=== PATIENT | female | born 1985 | race Caucasian/White ===

== ENCOUNTER 2024-04-08 09:55 | Outpatient (CLI) | payer OTHER ==
--- NOTE | 2024-04-08 12:25 | XRAY Report ---
PROCEDURE: Chest 2V INDICATIONS: ACUTE COUGH TECHNIQUE: 2 views of the chest were acquired. COMPARISON: None. FINDINGS: Surgical changes and devices: None. Lungs and pleura: Hazy patchy alveolar opacity in the right middle lobe region.Bilateral infrahilar interstitial thickening and bronchial wall thickening, right much greater than left. No pleural effus ion or pneumothorax. Mediastinum: Mediastinal contours appear normal. Heart size is normal. Bones and chest wall: No suspicious bony lesions. Overlying soft tissues appear unremarkable. IMPRESSION: Mixed interstitial and alveolar opacities in the infrahilar region bilaterally, right middle and lowe r lobe worse than left. Findings suggest bronchitis with probably superimposed pneumonia. No pleural effusion. Reviewed by: Leona Hernadez MD on 04/08/2024 12:24 PM PDT Approved by: Leona Hernadez MD on 04/08/2024 12:24 PM PDT Station ID: [id number]
== END 2024-04-08 11:12 | disposition home or self-care (01) ==
LOC: DI.N 09:55
PROVIDERS: ATTEND Physician Assistant Medical
DX: R05.1 Acute cough (principal); R91.8 Other nonspecific abnormal finding of lung field

== ENCOUNTER 2024-04-16 12:15 | Outpatient (CLI) | payer OTHER ==
[2024-04-16 18:19] LABS: CALCIUM 9.5 mg/dL (8.5-10.3); CREATININE 0.6 mg/dL (0.6-1.3); POTASSIUM 4.1 mmol/L (3.5-4.5)
[2024-04-16 18:21] LABS: HCT - HEMATOCRIT 42.4 % (37.0-47.0); HGB - HEMOGLOBIN 13.6 g/dL (12.0-16.0); MEAN CORPUSCULAR HEMOGLOBIN 26.2 pg (27.0-31.0); MEAN CORPUSCULAR HGB CONC 32.1 g/dL (32.0-36.0); MEAN CORPUSCULAR VOLUME 81.5 fL (81.0-99.0); MEAN PLATELET VOLUME 10.7 fL (7.9-10.8); RED BLOOD COUNT 5.2 10^6/uL (4.20-5.40); RED CELL DISTRIBUTION WIDTH 15.4 % (12.0-15.0); WHITE BLOOD COUNT 13.3 x10^3/uL (4.8-10.8)
== END 2024-04-16 12:30 | disposition home or self-care (01) ==
LOC: LAB.N 12:15
PROVIDERS: ATTEND Nurse Practitioner
DX: J18.9 Pneumonia, unspecified organism (principal)
CPT/HCPCS: 36415; 80048; 85027

== ENCOUNTER 2024-04-16 12:30 | Outpatient (CLI) | payer OTHER ==
--- NOTE | 2024-04-16 17:02 | XRAY Report ---
PROCEDURE: Chest 2V INDICATIONS: PNEUMONIA TECHNIQUE: 2 views of the chest were acquired. COMPARISON: Chest x-ray, 04/08/2024. FINDINGS: Surgical changes and devices: None. Lungs and pleura: Right lower lobe infiltrate has decreased. Left perihilar infiltrates longer prese nt. No pleural effusions or pneumothorax. Mediastinum: Mediastinal contours appear normal. Heart size is normal. Bones and chest wall: No suspicious bony lesions. Overlying soft tissues appear unremarkable. IMPRESSION: Resolving pneumonia. Reviewed by: Rd Jones MD on 04/16/2024 4:01 PM TABITHA Approved by: Rd Jones MD on 04/16/2024 4:01 PM AKDT Station ID: [id number]
== END 2024-04-16 12:45 | disposition home or self-care (01) ==
LOC: DI.N 12:30
PROVIDERS: ATTEND Nurse Practitioner
DX: J18.9 Pneumonia, unspecified organism (principal)

== ENCOUNTER 2024-07-23 10:15 | Outpatient (CLI) | payer OTHER | END 2024-07-23 10:30 | disposition home or self-care (01) | LOC: LAB.N 10:15 | PROVIDERS: ATTEND Physician Assistant Medical | DX: R31.9 Hematuria, unspecified (principal); R10.9 Unspecified abdominal pain | CPT/HCPCS: 87086 ==

== ENCOUNTER 2024-07-24 10:59 | Outpatient (CLI) | payer OTHER ==
--- NOTE | 2024-07-24 22:58 | CT Report ---
PROCEDURE: Abdomen/Pelvis WO INDICATIONS: HEMATURIA TECHNIQUE: A CT scan of the abdomen and pelvis was performed without the use of intravenous contrast. Images we re recorded and evaluated at appropriate window settings. Reformats: coronal and sagittal. For radiat ion dose reduction, the following was used: automated exposure control, adjustment of mA and/or kV ac cording to patient size. COMPARISON: None. FINDINGS: Image quality: Diagnostic. Lower chest: Unremarkable. Liver: No contour-deforming mass. Gallbladder: No radiopaque stones or wall thickening. Biliary tree: No intrahepatic or extrahepatic dilation, accounting for age. Spleen: Mild splenomegaly measuring 13.3 cm in the AP dimension (2/33) Pancreas: No pancreatic ductal dilation. Adrenals: Mild thickening of the adrenal glands bilaterally without nodularity (greater on the left ( 2/42). Kidneys and ureters: No hydronephrosis. No contour-deforming mass. Stomach, bowel and peritoneum: No gastric or small bowel dilation. No abnormal wall thickening. No pa thologic free fluid. Scattered colonic diverticulosis. Normal appendix (4/81). Lymph nodes: While not enlarged by size criteria, there are numerous mesenteric, para-aortic, paracav al, and internal iliac nodes (4/72; 2/71; 2/65). Vessels: No infrarenal aortic aneurysm. Minimal atherosclerosis of the infrarenal abdominal aorta (2/ 77) Reproductive organs: Globular appearance of the uterine body (6/129) Bladder: Bladder wall thickness is normal. No calcified bladder stones. Pelvic lymph nodes: No adenopathy by size criteria. Bones: No aggressive osseous abnormality. Other: No significant ventral or inguinal hernia. Small fat-containing umbilical hernia. IMPRESSION: 1.No hydronephrosis or obstructive urolithiasis. 2.Nonspecific finding of borderline splenomegaly and multiple, nonenlarged mesenteric and retroperito lupillo nodes. Please consider correlation with serum CBC to identify any potential blood cell dyscrasia . 3.Globular appearance of the uterus, which is a nonspecific finding but can be seen with adenomyosis. Reviewed by: Matthew Reyes MD on 07/24/2024 10:57 PM PDT Approved by: Matthew Reyes MD on 07/24/2024 10:57 PM PDT Station ID: [id number]
== END 2024-07-24 11:00 | disposition home or self-care (01) ==
LOC: DI 10:59
PROVIDERS: ATTEND Physician Assistant Medical
DX: R16.1 Splenomegaly, not elsewhere classified (principal); R31.9 Hematuria, unspecified